=== PATIENT | female | born 1975 | race Caucasian/White ===

== ENCOUNTER 2017-05-02 15:25 | Emergency (ER) | payer MEDICAID ==
[~2017-05-02] VITALS: Ht 160 cm; Wt 65.0 kg
[2017-05-02 15:32] VITALS: BP 132/74; PULSE 83; RESP 14; TEMP 98; O2SAT 99
[2017-05-02] MEDS ORDERED: SODIUM CHLORIDE 0.9% FLUSH 10 ML FLUSH IVF PRN (15:45)
--- NOTE | 2017-05-02 15:45 | PD ---
HPI Chief Complaint: Syncope/Near-Syncope Time Seen by Provider: 15:27 Travel History International Travel<30 days: No Contact w/Intl Traveler<30days: No Traveled to known affect area: No History of Present Illness HPI The patient was seen and examined in the presence of the nurse. This patient has been having some spells of dizziness and lightheadedness for the last 3 days. No syncope or chest pain or headache. She does have some anxiety issues as well as experiences palpitations during these events. Symptom severity is moderate. No alleviating factors. No exacerbating factors. She has no alcohol or drug use. Does not think she is . I cannot elicit a convincing vertigo history. Symptoms last a few minutes and resolve spontaneously. PFSH Past Medical History Medical History: Denies Significant Hx ?: Not Tubal Ligation: Yes Past Surgical History Cholecystectomy: Yes Social History Alcohol Use: No Tobacco Use: No Substance Use: No Allergies-Medications (Allergen,Severity, Reaction): Coded Allergies: No Known Allergies (Unverified , 05/02/17) Review of Systems General / Constitutional: No: Fever Eyes: No: Visual changes HENT: Positive: Lightheadedness, No: Headaches Cardiovascular: Positive: Palpitations, No: Chest Pain or Discomfort Respiratory: No: Shortness of Breath Gastrointestinal: No: Abdominal Pain Genitourinary: No: Dysuria Musculoskeletal: No: Pain Skin: No Rash Neurologic: Positive: Dizziness, No: Weakness Psychiatric: No: Depression Endocrine: No: Polydipsia Hematologic/Lymphatic: No: Easy Bruising Physical Exam Narrative GENERAL: Well-nourished, well-developed patient in no apparent distress. SKIN: Focused skin assessment reveals no rash and nodules. Skin is Warm and dry. HEAD: Atraumatic. Normocephalic. EYES: Pupils equal and round. No scleral icterus. No injection or drainage. ENT: No nasal bleeding or discharge. Mucous membranes pink and moist. NECK: Trachea midline. No JVD. CARDIOVASCULAR: Regular rate and rhythm. No murmur appreciated. RESPIRATORY: No accessory muscle use. Clear to auscultation. Breath sounds equal bilaterally. GASTROINTESTINAL: Abdomen soft, non-tender, nondistended. Hepatic and splenic margins not palpable. MUSCULOSKELETAL: No obvious deformities. No clubbing. No cyanosis. No edema. NEUROLOGICAL: Awake and alert. No obvious cranial nerve deficits. Motor grossly within normal limits. Normal speech. PSYCHIATRIC: Appropriate mood and affect; insight and judgment normal. Data Data Last Documented VS Vital Signs Date Time Temp Pulse Resp B/P (MAP) Pulse Ox O2 Delivery O2 Flow Rate FiO2 05/02/17 17:42 63 12 115/74 (88) 88 14 119/70 (86) 88 147/88 (107) 05/02/17 15:32 98.0 99 Room Air Orders Orders Electrocardiogram (05/02/17 15:39) Basic Metabolic Panel (Bmp) (05/02/17 15:39) Beta Hcg (Quant/Titer) (05/02/17 15:39) Complete Blood Count With Diff (05/02/17 15:39) Ecg Monitoring (05/02/17 15:39) Iv Access Insert/Monitor (05/02/17 15:39) Sodium Chloride 0.9% Flush (Ns Flush) (05/02/17 15:45) Thyroid Stimulating Hormone (05/02/17 15:53) Labs Laboratory Tests Test 05/02/17 15:53 White Blood Count 4.3 TH/MM3 Red Blood Count 4.01 MIL/MM3 Hemoglobin 12.4 GM/DL Hematocrit 36.1 % Mean Corpuscular Volume 90.1 FL Mean Corpuscular Hemoglobin 30.8 PG Mean Corpuscular Hemoglobin Concent 34.2 % Red Cell Distribution Width 12.4 % Platelet Count 217 TH/MM3 Mean Platelet Volume 8.4 FL Neutrophils (%) (Auto) 50.5 % Lymphocytes (%) (Auto) 42.1 % Monocytes (%) (Auto) 6.0 % Eosinophils (%) (Auto) 1.0 % Basophils (%) (Auto) 0.4 % Neutrophils # (Auto) 2.1 TH/MM3 Lymphocytes # (Auto) 1.8 TH/MM3 Monocytes # (Auto) 0.3 TH/MM3 Eosinophils # (Auto) 0.0 TH/MM3 Basophils # (Auto) 0.0 TH/MM3 CBC Comment DIFF FINAL Differential Comment Blood Urea Nitrogen 7 MG/DL Creatinine 0.67 MG/DL Random Glucose 83 MG/DL Calcium Level 9.4 MG/DL Sodium Level 140 MEQ/L Potassium Level 3.8 MEQ/L Chloride Level 101 MEQ/L Carbon Dioxide Level 30.7 MEQ/L Anion Gap 8 MEQ/L Estimat Glomerular Filtration Rate 98 ML/MIN Thyroid Stimulating Hormone 3rd Gen 1.140 uIU/ML Human Chorionic Gonadotropin, Quant LESS THAN 1 MIU/ML MDM Medical Decision Making Medical Screen Exam Complete: Yes Emergency Medical Condition: Yes Medical Record Reviewed: Yes Differential Diagnosis Vasovagal episode, cardiac arrhythmia, anxiety, vertigo Narrative Course I have reviewed the patient's electronic medical record. Patient's exam and vital signs are normal. She is neurologically intact. I reviewed her EKG which is normal Extended cardiac monitoring revealed sinus rhythm without ectopy Labs sent is negative and general blood counts and metabolic studies are normal TSH normal Patient remains fairly asymptomatic and stable for outpatient follow-up. I think she may have had an anxiety attack but nothing definitive at this point Diagnosis Primary Impression: Lightheadedness Additional Impression: Pre-syncope Additional Instructions: The patient was advised to follow up with their physician and return if they worsen. Med/Other Pt SpecificInfo: Other Disposition: 01 DISCHARGE HOME Condition: Stable Lucio Everett MD May 02, 2017 15:45
[2017-05-02 16:08] LABS: AUTOMATED NEUTROPHIL # 2.1 TH/MM3 (1.8-7.7); BASOPHIL % 0.4 % (0.0-2.0); HEMATOCRIT 36.1 % (35.0-46.0); HEMOGLOBIN 12.4 GM/DL (11.6-15.3); LYMPH % 42.1 % (9.0-44.0); LYMPHOCYTE # 1.8 TH/MM3 (1.0-4.8); MEAN CELL VOLUME 90.1 FL (80.0-100.0); MEAN CORPUSCULAR HEMOGLOBIN 30.8 PG (27.0-34.0); MEAN CORPUSCULAR HGB CONC 34.2 % (32.0-36.0); MEAN PLATELET VOLUME 8.4 FL (7.0-11.0); MONOCYTE # 0.3 TH/MM3 (0-0.9); NEUT % 50.5 % (16.0-70.0); PLATELET COUNT 217 TH/MM3 (150-450); RED BLOOD COUNT 4.01 MIL/MM3 (4.00-5.30); RED CELL DISTRIBUTION WIDTH 12.4 % (11.6-17.2); WHITE BLOOD COUNT 4.3 TH/MM3 (4.0-11.0)
[2017-05-02 16:44] LABS: BICARBONATE 30.7 MEQ/L (21.0-32.0); BLOOD UREA NITROGEN 7 MG/DL (7-18); CALCIUM 9.4 MG/DL (8.5-10.1); CHLORIDE 101 MEQ/L (98-107); CREATININE 0.67 MG/DL (0.50-1.00); GLOMERULAR FILTRATION RATE 98 ML/MIN (>89); GLUCOSE,RANDOM 83 MG/DL (74-106); SODIUM (NA) 140 MEQ/L (136-145)
[2017-05-02 17:42] VITALS: BP_SYST 115; BP_SYST 119; BP_SYST 147; BP_DIAS 70; BP_DIAS 74; BP_DIAS 88; RESP 12; RESP 14
--- NOTE | 2017-05-03 08:49 | EKG ---
Date Performed: 05/02/2017 Time Performed: 15:37:02 PTAGE: 41 years EKG: Sinus rhythm NORMAL ECG NO PREVIOUS TRACING DOCTOR: Patrizia Dean Interpretating Date/Time 05/03/2017 08:48:04
== END 2017-05-02 19:02 | disposition home or self-care (01) ==
LOC: NEPC 15:25
DX: R55 Syncope and collapse (principal); R00.2 Palpitations
CPT/HCPCS: 80048; 84443; 84702; 85025; 93005